=== PATIENT | female | born 1990 | race African-American/Black ===

== ENCOUNTER 2017-05-30 23:38 | Emergency (ER) | payer SELFPAY ==
[~2017-05-30] VITALS: Ht 167.6 cm; Wt 59.0 kg
[~2017-05-30 23:38] MED LIST: IBUP-1060 PO; OXYC-323 PO
[2017-05-30 23:39] VITALS: BP 137/64
--- NOTE | 2017-05-31 00:13 | PHYS DOC ---
Past Medical History Past Medical History: No Pertinent History Alcohol Use: Occasionally Drug Use: None Adult General Chief Complaint Chief Complaint: CHEST PAIN [facility] HPI Patient is a 26 year old who has a one episode of chest pain that lasted a couple minutes at home, in the ED she is chest pain-free. Patient also experienced what she describes as left arm stiffness. Patient has not complaints. The pain was under the left breast and did not radiate, did not have any associated symptoms other than as described. Review of Systems Review of Systems Constitutional: Denies fever or chills [] Eyes: Denies change in visual acuity, redness, or eye pain [] HENT: Denies nasal congestion or sore throat on Monday denies neck pain Respiratory: Denies cough or shortness of breath [] Cardiovascular: No additional information not addressed in HPI [] GI: Denies abdominal pain : Denies dysuria or hematuria [] Musculoskeletal: Denies back pain or joint pain. as per hpi Integument: Denies rash or skin lesions [] Neurologic: Denies headache, focal weakness or sensory changes [] Allergies Allergies Allergies Coded Allergies Type Severity Reaction Last Updated Verified No Known Drug Allergies 12/21/13 No Physical Exam Physical Exam Constitutional: Well developed, well nourished, no acute distress, non-toxic appearance. [] HENT: Normocephalic, atraumatic,, oropharynx moist, no oral exudates, nose normal. [] Eyes: EOMI, conjunctiva normal, no discharge. [] Neck: Normal range of motion, no tenderness, supple, no stridor. No JVD, no LAD Cardiovascular:Heart rate regular rhythm, no murmur, equal pulses, normal perfusion Lungs & Thorax: Bilateral breath sounds clear to auscultation, no tachypnea Abdomen: Bowel sounds normal, soft, no tenderness, no masses, no pulsatile masses. [] Skin: Warm, dry, no erythema, no rash. [] Back: No tenderness, no CVA tenderness. [] Extremities: No tenderness, no cyanosis, no DVT, ROM intact, no edema. NVI distally Neurologic: Alert and oriented X 3, normal motor function, normal sensory function, no focal deficits noted. [] Psychologic: Affect normal, judgement normal, mood normal. [] Current Patient Data Vital Signs Vital Signs Date Time Temp Pulse Resp B/P (MAP) Pulse Ox O2 Delivery O2 Flow Rate FiO2 05/30/17 23:39 98.6 83 18 137/64 (88) 98 Room Air 98.6 EKG EKG 2357 sinus rhythm, 70, no STEMI[] Radiology/Procedures Radiology/Procedures CXR: no acute findings[] Course & Med Decision Making Course & Med Decision Making Pertinent Labs and Imaging studies reviewed. (See chart for details) Patient looks well, vital signs signs are unremarkable, physical exam and the ED is unremarkable. Given the positive findings on exam and the fact that the patient is pain-free I do not believe the patient is in need for inpatient evaluation at this time or in need for labs or imaging other than the chest x- ray. Suspicion for a concerning cardiac, pulmonary, vascular etiology is very low at this time of the ED evaluation. I have recommended to the patient that she follow-up with her primary care doctor or one of the clinics in town for recheck and reevaluation. Strict return precautions have been provided to the patient progress to follow up as directed. Specifically consideration has been given to (but not limited to) ACS, PE, pneumonia, pneumothorax, infectious, or bony abnormalities. [] Dragon Disclaimer Dragon Disclaimer This electronic medical record was generated, in whole or in part, using a voice recognition dictation system. Departure Departure Impression: Primary Impression: Chest pain Disposition: 01 HOME, SELF-CARE Condition: STABLE Patient Instructions: Chest Pain (Nonspecific) Additional Instructions: Please follow-up with your doctor for recheck and reevaluation in 2 days. If your doctor is not available please follow-up one of the clinics in the list provided to you. If your symptoms return or worsen or any new concerns develop please return to the ED immediately. Alicia HARO MD May 31, 2017 00:13
--- NOTE | 2017-05-31 06:33 | EKG ---
[facility] [address] [place] [address] Test Date: 2017-05-30 Test Time: 23:56:19 Pat Name: CIARA PRIETO Department: Room: Gender: F [employer] Teacher: : 1990 Requested By: Alicia HARO Order Number: [id number] Reading MD: Measurements Intervals [place] Rate: 70 P: 0 AK: 154 QRS: 50 QRSD: 82 T: 23 QT: 382 QTc: 415 Interpretive Statements SINUS RHYTHM QRS(T) CONTOUR ABNORMALITY CONSIDER ANTEROLATERAL MYOCARDIAL DAMAGE RI6.01 Unconfirmed report No previous ECG available for comparison
--- NOTE | 2017-05-31 07:39 | RAD ---
Chest x-ray Indication: Chest pain. Technique: PA and lateral views of the chest Comparison: Previous study from 03/11/2013 Findings: Heart is normal in size. Lungs are clear. No pneumothorax or pleural effusion. Visualized bony thorax within normal limits. Impression: No acute cardiopulmonary process.
== END 2017-05-31 00:47 | disposition home or self-care (01) ==
LOC: ER 23:38
DX: R07.89 Other chest pain (principal)
CPT/HCPCS: 71020; 93005; 99284-25